=== PATIENT | male | born 1995 | race Caucasian/White ===

== ENCOUNTER 2018-01-07 02:04 | Emergency (ER) | payer OTHER ==
[~2018-01-07] VITALS: Ht 177.8 cm; Wt 108.9 kg
[2018-01-07] MEDS ORDERED: KEFLEX500 M1 PO (02:20)
[2018-01-07 02:33] VITALS: BP 112/63
== END 2018-01-07 02:34 | disposition home or self-care (01) ==
LOC: M.ERS 02:04
DX: S61.011A Laceration without foreign body of right thumb without damage to nail, initial encounter (principal); W31.9XXA Contact with unspecified machinery, initial encounter; Y93.89 Activity, other specified; Y92.89 Other specified places as the place of occurrence of the external cause; Y99.8 Other external cause status; J45.909 Unspecified asthma, uncomplicated; F17.210 Nicotine dependence, cigarettes, uncomplicated